=== PATIENT | male | born 1990 | race Caucasian/White ===

== ENCOUNTER 2016-11-07 19:02 | Emergency (ER) | payer BC ==
[2016-11-07 19:05] VITALS: BP 156/96; PULSE 85; TEMP 98; BMI 21.4
--- NOTE | 2016-11-07 19:41 | PDOC ---
History of Present Illness - General History Source: Patient, Family Exam Limitations: No Limitations - History of Present Illness Initial Comments: 11/07/16 19:52 The patient is a 26 year old male with no significant past medical history, presenting to the Emergency Department with left lower quadrant pain for two weeks. The patient reports a discomfort at the left lower side of his abdomen which has been persistent over the past two weeks. He admits that the pain is nonradiating, and has not worsened over the past two weeks. He denies a change in appetite, and denies nausea or change in bowel movements. The patients mother reports that the patients diet is heavy in protein shakes and creatine. The patient denies nausea, vomiting, and diarrhea. Patient denies fever, cough, and chills. Patient denies neck pain or back pain. Patient denies chest pain, palpitations, and shortness of breath. <Jackie Marks - Last Filed: 11/07/16 19:52> <Krysta Jaimes - Last Filed: 11/10/16 09:29> - General Chief Complaint: Pain Stated Complaint: ABDOMINAL PAIN Time Seen by Provider: 11/07/16 19:40 Past History <Jackie Marks - Last Filed: 11/07/16 19:52> - Psycho/Social/Smoking Cessation Hx Suicidal Ideation: No Smoking History: Never smoked Information on smoking cessation initiated: No <Krysta Jaimes - Last Filed: 11/10/16 09:29> - Past Medical History Allergies/Adverse Reactions: Allergies Allergy/AdvReac Type Severity Reaction Status Date / Time No Known Allergies Allergy Verified 11/07/16 19:05 Home Medications: Ambulatory Orders NK [No Known Home Medication] 11/07/16 Review of Systems - Review of Systems Able to Perform ROS?: Yes Comments:: 11/07/16 19:52 GENERAL/CONSTITUTIONAL: No fever or chills. No weakness. HEAD, EYES, EARS, NOSE AND THROAT: No change in vision. No ear GASTROINTESTINAL: + left lower quadrant pain. No nausea, vomiting, diarrhea or constipation. GENITOURINARY: No dysuria, frequency, or change in urination.pain or discharge. No sore throat. CARDIOVASCULAR: No chest pain or shortness of breath. RESPIRATORY: No cough, wheezing, or hemoptysis. MUSCULOSKELETAL: No joint or muscle swelling or pain. No neck or back pain. SKIN: No rash NEUROLOGIC: No headache, vertigo, loss of consciousness, or change in strength/ sensation. ENDOCRINE: No increased thirst. No abnormal weight change. HEMATOLOGIC/LYMPHATIC: No anemia, easy bleeding, or history of blood clots. ALLERGIC/IMMUNOLOGIC: No hives or skin allergy. <Jackie Marks - Last Filed: 11/07/16 19:52> *Physical Exam - Vital Signs Last Vital Signs Temp Pulse Resp BP Pulse Ox 98 F 85 18 156/96 100 11/07/16 19:03 11/07/16 19:03 11/07/16 19:03 11/07/16 19:03 11/07/16 19:03 <Jackie Marks - Last Filed: 11/07/16 19:52> - Vital Signs Last Vital Signs Temp Pulse Resp BP Pulse Ox 98 F 85 18 156/96 100 11/07/16 19:03 11/07/16 19:03 11/07/16 19:03 11/07/16 19:03 11/07/16 19:03 - Physical Exam Comments: GENERAL: Awake, alert, and fully oriented, in no acute distress. Appears uncomfortable. HEAD: No signs of trauma EYES: PERRLA, EOMI, sclera anicteric, conjunctiva clear ENT: Auricles normal inspection, hearing grossly normal, nares patent, oropharynx clear without exudates. Moist mucosa NECK: Normal ROM, supple, no lymphadenopathy, JVD, or masses LUNGS: Breath sounds equal, clear to auscultation bilaterally. No wheezes, and no crackles HEART: Regular rate and rhythm, normal S1 and S2, no murmurs, rubs or gallops ABDOMEN: Soft, nontender, normoactive bowel sounds. No guarding, no rebound. No masses EXTREMITIES: Normal range of motion, no edema. No clubbing or cyanosis. No cords, erythema, or tenderness NEUROLOGICAL: Cranial nerves II through XII grossly intact. Normal speech, normal gait SKIN: Warm, Dry, normal turgor, no rashes or lesions noted. <Krysta Jaimes - Last Filed: 11/10/16 09:29> ED Treatment Course - LABORATORY CBC & Chemistry Diagram: 11/07/16 20:09 11/07/16 21:03 <Krysta Jaimes - Last Filed: 11/10/16 09:29> Medical Decision Making - Medical Decision Making CT a/p no acute findings. Stable for DC home. <Krysta Jaimes - Last Filed: 11/10/16 09:29> *DC/Admit/Observation/Transfer - Attestations Scribe Attestion: 11/07/16 19:53 Documentation prepared by Jackie Marks, acting as medical technologist for Krysta Jaimes MD. <Jackie Marks - Last Filed: 11/07/16 19:52> - Discharge Dispostion Admit: No <Krysta Jaimes - Last Filed: 11/10/16 09:29> Diagnosis at time of Disposition: Abdominal pain Qualifiers: Abdominal location: left lower quadrant Qualified Code(s): R10.32 - Left lower quadrant pain - Discharge Dispostion Disposition: HOME Condition at time of disposition: Stable - Referrals Referrals: STAFF,NOT ON [Primary Care Provider] - - Patient Instructions Printed Discharge Instructions: DI for Abdominal Pain-Adult
[2016-11-07] MEDS ORDERED: SODIUM CHLORIDE 1,000 ML IV STA (19:50)
[2016-11-07 20:29] LABS: BASOPHIL 0.4 % (0-2.0); EOSINOPHIL 1.3 % (0-4.5); MCH 31.4 pg (25.7-33.7); MCHC 33.5 g/dl (32.0-35.9); MEAN CELL VOLUME 93.8 fl (80-96); MEAN PLT VOLUME 9.4 fl (7.5-11.1); NEUTROPHILS 64.3 % (42.8-82.8); PLATELET COUNT 213 K/MM3 (134-434); RDW 13.6 % (11.9-15.9); WHITE BLOOD COUNT 8.5 K/mm3 (4.0-10.0)
[2016-11-07 21:56] LABS: ALBUMIN 3.9 g/dl (3.4-5.0); ALK PHOS 61 U/L (45-117); ANION GAP 8 (8-16); BILIRUBIN,TOTAL 0.6 mg/dL (0.2-1.0); CALCIUM 8.4 mg/dL (8.5-10.1); CO2 25 mmol/L (21-32); CREATININE 1.3 mg/dL (0.7-1.3); GLUCOSE,RANDOM 105 mg/dL (74-106); SGOT/AST 23 U/L (15-37); SGPT/ALT 32 U/L (12-78); TOT PROT 6.7 g/dl (6.4-8.2)
[2016-11-07 21:58] LABS: TROPONIN I < 0.02 ng/ml (0.00-0.05)
== END 2016-11-07 23:34 | disposition home or self-care (01) ==
LOC: JER 19:02
PROC: 3E0337Z Introduction of Electrolytic and Water Balance Substance into Peripheral Vein, Percutaneous Approach (ICD-10-PCS; principal; 2016-11-07)
DX: R10.32 Left lower quadrant pain (principal)
CPT/HCPCS: 36415; 74177-TC; 80053; 82550; 82553; 83690; 84484; 85025; 99283-25

== ENCOUNTER 2022-08-23 15:03 | Emergency (ER) | payer BC ==
[2022-08-23 15:17] VITALS: BP 156/95; PULSE 76; RESP 18; TEMP 98; BMI 22.1
[2022-08-23] MEDS ORDERED: IBUPROFEN 400 MG TABLET (FP) PO ONE ×2 (15:57→16:08)
[2022-08-23] MEDS ORDERED: LIDOCAINE 5% TOPICAL PATCH TP ONE (15:57)
[2022-08-23] MEDS ORDERED: LIDOCAINE 5% TOPICAL PATCH ONE (16:08)
[2022-08-23] MEDS ORDERED: LIDOCAINE PATCH REMOVAL MC SCH (22:00)
== END 2022-08-23 16:54 | disposition home or self-care (01) ==
LOC: JERFT 15:03
DX: R07.9 Chest pain, unspecified (principal)
CPT/HCPCS: 71046-TC-FY; 93005; 93010; 99284-25

== ENCOUNTER 2023-03-31 15:49 | Emergency (ER) | payer BC ==
[2023-03-31 16:05] VITALS: BP 144/86; PULSE 76; RESP 16; TEMP 98.2; BMI 22.1
== END 2023-03-31 18:00 | disposition home or self-care (01) ==
LOC: JER 15:49
DX: R07.2 Precordial pain (principal); X50.0XXA Overexertion from strenuous movement or load, initial encounter
CPT/HCPCS: 71046-TC-FY; 93005; 93010; 99284-25